=== PATIENT | male | born 1955 | race American Indian/Alaskan Native ===

== ENCOUNTER 2022-04-03 05:09 | Emergency (ER) | payer SELFPAY ==
[2022-04-03 06:12] LABS: Basophils % (Auto) 0.7 % (0.0-1.8); Eosinophils % (Auto) 0.6 % (0.0-4.3); Hemoglobin 12.9 gm/dl (11.8-15.2); Lymphocytes # (Auto) 1.2 K/mm3 (1.2-5.4); Lymphocytes % (Auto) 25.4 % (13.4-35.0); Mean Corpuscular HGB Conc 32 % (32-34); Mean Corpuscular Volume 90 fl (84-94); Monocytes # (Auto) 0.6 K/mm3 (0.0-0.8); Monocytes % (Auto) 12.9 % (0.0-7.3); Platelet Count 239 K/mm3 (140-440); Red Blood Count 4.45 M/mm3 (3.65-5.03); Red Cell Distribution Width 15.3 % (13.2-15.2)
[2022-04-03 06:30] LABS: BUN/Creatinine Ratio 13; Blood Urea Nitrogen 13 mg/dL (9-20); Calcium 9.1 mg/dL (8.4-10.2); Hemolysis Index 3
--- NOTE | 2022-04-03 07:44 | Emergency Department Report ---
HPI - General Chief Complaint: Overdose Time Seen by Provider: 04/03/22 07:14 - [facility] HPI: Room 23 The patient is a 66-year-old male presenting with a chief complaint of overdose. The patient told his he wanted to kill himself by overdosing on 3 separate medications. Patient states that approximately midnight he had taken 3 of his amoxicillin, 2 Naprosyn and 7 acetaminophen/codeine 300/30. The states she saw him smoking something last night with the patient said with speed and he got into an argument. The states she went back to bed and then got up to check on the patient and asked when he appeared lethargic and his "eyes were rolling back" and the patient admitted to taking multiple pills in an attempt to kill himself. In the ED the patient denies suicidal ideation and states he is just taking medication to treat his chronic pain. Patient's was contacted at [phone] ED Past Medical Hx - Past Medical History Previous Medical History?: Yes Hx Hypertension: Yes Hx Diabetes: Yes Hx of Cancer: Yes (Prostate s/p surgery) Hx HIV: Yes - Surgical History Past Surgical History?: Yes Additional Surgical History: Prostate - Family History Family history: no significant - Social History Smoking Status: Former Smoker (20 years) Substance Use Type: None (Denies illicit drug use), Alcohol (Moderately) ED Review of Systems ROS: Stated complaint: OVERDOSE Other details as noted in HPI Constitutional: no symptoms reported Eyes: denies: eye pain ENT: denies: throat pain Respiratory: no symptoms reported Cardiovascular: denies: chest pain Endocrine: no symptoms reported Gastrointestinal: denies: abdominal pain Genitourinary: denies: dysuria Musculoskeletal: back pain (Chronic) Neurological: denies: headache Physical Exam - Physical Exam Vital Signs: Vital Signs 04/03/22 04/03/22 04/03/22 05:10 05:45 06:00 Temperature 98 F Pulse Rate 80 70 72 Respiratory 18 19 14 Rate Blood Pressure 140/70 134/80 126/74 O2 Sat by Pulse 98 99 83 L Oximetry 04/03/22 06:45 Temperature Pulse Rate 71 Respiratory 18 Rate Blood Pressure 123/61 O2 Sat by Pulse 100 Oximetry Physical Exam: GENERAL: The patient is well-developed well-nourished male lying on stretcher not appearing to be in acute distress. [] HEENT: Normocephalic. Atraumatic. Extraocular motions are intact. Patient has moist mucous membranes. NECK: Supple. Trachea midline CHEST/LUNGS: Clear to auscultation. There is no respiratory distress noted. HEART/CARDIOVASCULAR: Regular. There is no tachycardia. There is no gallop rub or murmur. ABDOMEN: Abdomen is soft, nontender. Patient has normal bowel sounds. There is no abdominal distention. SKIN: There is no rash. There is no edema. There is no diaphoresis. NEURO: The patient is awake, alert, and oriented. The patient is cooperative. The patient has no focal neurologic deficits. The patient has normal speech. GCS 15 MUSCULOSKELETAL: There is no evidence of acute injury. ED Course Vital Signs 04/03/22 04/03/22 04/03/22 05:10 05:45 06:00 Temperature 98 F Pulse Rate 80 70 72 Respiratory 18 19 14 Rate Blood Pressure 140/70 134/80 126/74 O2 Sat by Pulse 98 99 83 L Oximetry 04/03/22 06:45 Temperature Pulse Rate 71 Respiratory 18 Rate Blood Pressure 123/61 O2 Sat by Pulse 100 Oximetry ED Medical Decision Making - Lab Data Result diagrams: 04/03/22 05:52 04/03/22 05:52 - Differential Diagnosis Suicidal ideation, drug overdose Critical care attestation.: If time is entered above; I have spent that time in minutes in the direct care of this critically ill patient, excluding procedure time. ED Disposition Clinical Impression: Suicidal ideation, Medication overdose Disposition: 30 STILL A PATIENT Is pt being admited?: No Does the pt Need Aspirin: No Condition: Stable Instructions: Suicidal Feelings: How to Help Yourself, Intentional Drug Overdose Additional Instructions: In case of an emergency, please contact the following numbers: [place] Crisis and Access Line: Number: Crisis Text Line: (Text START) Number: 064924 Suicide Prevention Line: Number: Emergency Number: 911 SUBSTANCE ABUSE PROGRAMS: [facility]: Location: [place], [place] [facility] Address: [address] [place] [address] [address] [facility] Recovery: Address: [address] [place] [address] [facility] Adult Rehabilitation: Address: [address] [place] [address] [facility] Community: Address: [address] [place] [address] LUIS M [facility] Address: [address] [place] [address]. Please contact above numbers to attempt placement into free based program. Medicaid Programs: [facility]: Address: [address] [place] [address] [facility]: Address: [address] [place] [address] Professional and Agency Contacts To help [facility] Cr[facility] (13/03) [place] Crisis Line: Suicide Prevention Line: Crisis Text Line: Text START to 729687 Emergency: 911 Outpatient COMMUNITY Behavioral Health Resources: [place]: [facility] [address] [place], [place] [address] [place]: [facility] [address] [place] [address] Monday thru Monday - 8am - 5pm Call to schedule an assessment for mental health and substance abuse programs [place]: [facility] Address: [address] [place], [place] [address]Monday thru Monday- 7am-2pm [facility] Address: [address] [place] [address] Monday thru Monday: 8:30AM-5PM OUTPATIENT MENTAL HEALTH RESOURCES [facility], [facility] Amelia Ludwig MD: [address] [place] [address], [address] [place] [address] [place], [place] [id number] [facility] [address] [place] [address] [place] [id number] [phone] [facility]: [facility] Healthcare: [address] [facility] [address] [place] [address] [facility] [id number] [facility]: Xavier Parker MD: [address] [facility] [address] [facility] [id number] [facility]: [address] [place] [phone] [place] CRISIS AND ACCESS LINE: Referrals: [facility] [Outside] - 3-5 Days PRIMARY CAREMD [Primary Care Provider] - 3-5 Days
[2022-04-03 08:58] LABS: Mucus,Urine FEW /HPF; WBC,Urine < 1.0 /HPF (0.0-6.0)
[2022-04-03 09:17] LABS: Alanine Aminotransferase 20 units/L (7-56); Albumin 4.6 g/dL (3.9-5)
[2022-04-03 09:18] LABS: Bilirubin,Direct < 0.2 mg/dL (0-0.2)
[2022-04-03 09:30] LABS: Amphetamine Screen,Urine PRESUMPTIVE NEGATIVE; Benzodiazepines Screen,Urine PRESUMPTIVE NEGATIVE; Cannabinoid Screen,Urine PRESUMPTIVE NEGATIVE; Cocaine Screen,Urine PRESUMPTIVE POSITIVE; Methadone Screen,Urine PRESUMPTIVE NEGATIVE; Opiate Screen,Urine PRESUMPTIVE NEGATIVE
--- NOTE | 2022-04-03 10:31 | Consultation ---
History of Present Illness - Reason for Consult Consult date: 04/03/22 Reason for consult: depression - History of Present Psychiatric Illness The patient was seen today. He is calm, cooperative and pleasant. He appears upbeat. The patient says it was a big misunderstanding. He says he is dealing with some depression because he might lose his job. He says "but I was never trying to hurt myself." The patient says he was doing something he should not have been doing. I take that to be drugs. When I ask him he initially denied, but then stated he did drugs. The patient is positive for cocaine. He also says he drinks, but denies it being a problem. The patient says "I'm not a psych patient. I'm not going to kill myself or no one else." He says "I've never tried to do anything like that." The patient denies hallucinations of any kind. He says he sees an outpatient provider for depression, and takes medication, but he could not recall the medication. PAST PSYCHIATRIC HISTORY Diagnoses: Depression Suicide attempts or Self-harm behavior: Denies Prior psychiatric hospitalizations: Denies Substance Abuse history: Cocaine Previous psychiatric medications tried: Could not recall Outpatient treatment: Yes PAST MEDICAL HISTORY: None reported Family Psychiatric History: None reported or documented SOCIAL HISTORY Living arrangement: states she lives alone Marital status: Single REVIEW OF SYSTEMS Constitutional: Negative for weight loss ENT: Negative for stridor Respiratory: Negative for cough or hemoptysis All other systems reviewed and are negative MENTAL STATUS EXAMINATION General Appearance and Behavior: Age appropriate, good hygiene, wearing appropriate clothes, good eye contact, calm, cooperative, pleasant Cooperation: Participating/engaged Psychomotor Behavior: Psychomotor normal Mood: good Affect and affective range: congruent with stated mood Thought Process: Goal directed Thought Content: None Speech: normal tone and pace Suicidal Ideation: Denies Homicidal Ideation: Denies Hallucinations: Denies Delusions: none elicited Impulse Control: Limited Insight and Judgment: Limited insight and judgment Memory: Good Attention: Attentive Orientation: Alert, oriented Assessment and Plan Major Depressive Disorder Cocaine Use Disorder Treatment d/c 1013 Continue home meds as prescribed Sitter: Per primary Medical: Per primary Disposition: Do not recommend acute psychiatric inpatient treatment. The patient understands that if SI/HI or any fear of endangerment arise he is to seek immediate assistance The manager of change to further discuss safety plan and provide resources for drug rehab The patient to follow up with outpatient psych in 7 to 14 days upon discharge The patient to abstain from all illicit drug use Will sign off. Thank you for this consult Case staffed with Dr. Chapman Medications and Allergies Allergies Allergy/AdvReac Type Severity Reaction Status Date / Time No Known Allergies Allergy Unverified 04/03/22 05:40 Mental Status Exam - Vital signs Last Vital Signs Temp 98 F 04/03/22 05:10 Pulse 72 04/03/22 08:00 Resp 16 04/03/22 08:00 BP 140/73 04/03/22 08:00 Pulse Ox 99 04/03/22 08:00 Results Result Diagrams: 04/03/22 05:52 04/03/22 05:52 Abnormal lab results 04/03/22 04/03/22 04/03/22 Range/Units 05:52 05:52 05:52 RDW (13.2-15.2) % [place] % (Auto) (0.0-7.3) % Potassium 3.4 L (3.6-5.0) mmol/L Glucose 110 H (75-100) mg/dL Salicylates < 0.3 L (2.8-20.0) mg/dL Acetaminophen 5.0 L (10.0-30.0) ug/mL 04/03/22 Range/Units 05:52 RDW 15.3 H (13.2-15.2) % [place] % (Auto) 12.9 H (0.0-7.3) % Potassium (3.6-5.0) mmol/L Glucose (75-100) mg/dL Salicylates (2.8-20.0) mg/dL Acetaminophen (10.0-30.0) ug/mL All other labs normal.
[2022-04-03 11:16] LABS: Bilirubin,Urine Negative (Negative); Blood,Urine Negative (Negative); Color,Urine Straw (Yellow); Protein,Urine <15 mg/dL mg/dL (Negative)
--- NOTE | 2022-04-03 12:56 | Event Note ---
Date: 04/03/22 Spoke to the patient's who states that the patient has a cocaine problem and has this behavior where he takes pills every time he does the cocaine. She says the patient knows how to manipulate people into believing that he doesn't have a problem. She says he has lost multiple jobs due to his drug habit. She is upset with the patient and states she can't keep going through this. She is wanting the patient to have rehab. I discussed with the spouse that the patient has to want rehab, but he doesn't feel as if he needs the help or has a problem. She says he can not come back to her house because she's sick of the ongoing drug use. She is requesting the patient to be observed longer due to him taking the pills. I advised her that we would continue to observe the patient overnight, but more than likely he would be discharged tomorrow since he has consistently denied any thoughts of wanting to harm himself or others.
--- NOTE | 2022-04-03 14:44 | Electrocardiograph Report ---
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
--- NOTE | 2022-04-04 09:34 | Progress Note ---
Subjective - Reason for Consult Consult date: 04/04/22 Reason for consult: Cocaine dependence - Chief Complaint Chief complaint: The patient was seen today. He is calm, cooperative and pleasant. He is laughing, talking to another patient and verbalizes feeling well. The patient says "yesterday, I wasn't honest about my drug addiction. But I know what I have to do. I know I came here for a reason and realized I gotta do things different." The patient denies SI/HI or hallucinations of any kind. The patient says he already sees someone who treats his depression on an outpatient basis. REVIEW OF SYSTEMS Constitutional: Negative for weight loss ENT: Negative for stridor Respiratory: Negative for cough or hemoptysis All other systems reviewed and are negative MENTAL STATUS EXAMINATION General Appearance and Behavior: Age appropriate, good hygiene, wearing appropriate clothes, good eye contact, calm, cooperative, pleasant Cooperation: Participating/engaged Psychomotor Behavior: Psychomotor normal Mood: good, well Affect and affective range: congruent with stated mood, Euthymic Thought Process: Goal directed Thought Content: None Speech: normal tone and pace Suicidal Ideation: Denies Homicidal Ideation: Denies Hallucinations: Denies Delusions: none elicited Impulse Control: Limited Insight and Judgment: Good insight and judgment Memory: Good Attention: Attentive Orientation: Alert, oriented Assessment and Plan Major Depressive Disorder Cocaine Use Disorder Treatment d/c 1013 Continue home meds as prescribed Sitter: Per primary Medical: Per primary Disposition: Do not recommend acute psychiatric inpatient treatment. The patient understands that if SI/HI or any fear of endangerment arise he is to seek immediate assistance The grade recorder to further discuss safety plan and provide resources for drug rehab The patient to follow up with outpatient psych in 7 to 14 days upon discharge The patient to abstain from all illicit drug use Will sign off. Thank you for this consult Case staffed with Dr. Chapman Mental Status Exam - Vital signs Last Vital Signs Temp 98 F 04/03/22 19:59 Pulse 62 04/03/22 19:59 Resp 18 04/03/22 19:59 BP 133/74 04/03/22 19:59 Pulse Ox 100 04/03/22 22:51
[2022-04-04 10:53] VITALS: BP 127/71
== END 2022-04-04 12:52 | disposition home or self-care (01) ==
LOC: ED 05:09
DX: T36.0X2A Poisoning by penicillins, intentional self-harm, initial encounter (principal); T40.1X2A Poisoning by heroin, intentional self-harm, initial encounter; T39.312A Poisoning by propionic acid derivatives, intentional self-harm, initial encounter; I10 Essential (primary) hypertension; E11.9 Type 2 diabetes mellitus without complications; Z87.891 Personal history of nicotine dependence; Z79.899 Other long term (current) drug therapy; Y92.89 Other specified places as the place of occurrence of the external cause
CPT/HCPCS: 36415; 80048; 80076; 80307; 80320; 81001; 85025; 93005; 99284; G0480